=== PATIENT | female | born 1990 | race Two or more races ===

== ENCOUNTER → 2025-03-22 | Outpatient (CLI) | payer BC, SELFPAY ==
--- NOTE | 2025-03-22 16:19 | XR_ITS ---
Examination: PA lateral chest 2 views Technique: Upright PA lateral chest 2 views Date and time: March 22, 2025, 1624 hrs., Comparison December 08, 2011 Indications: Coughing 3 weeks, diagnosis coccidiomycosis Findings: No significant cardiac enlargement No pneumonia or pulmonary edema. Study The osseous structures are intact Impression: No pneumonia or pulmonary edema
[2025-03-23 15:03] LABS: Cocci Serology, IgM Negative (Negative)
[2025-03-25 14:49] LABS: Cocci Serology, IgG Negative (Negative)
== END | disposition home or self-care (01) ==
LOC: CDIM 16:14 → COPL 16:29
PROVIDERS: PCP Family Medicine; Referring Provider Family Medicine; Visit Provider Radiology Diagnostic Radiology
DX: J40 Bronchitis, not specified as acute or chronic (principal)
CPT/HCPCS: 36415; 71046; 86331; 86635